=== PATIENT | male | born 1955 | race African-American/Black ===

== ENCOUNTER 2016-07-10 21:07 | Emergency (ER) | payer BC ==
[2016-07-10] MEDS ORDERED: IPRATROPIUM/ALBUTEROL SULFATE 3 ML AMPUL.NEB NEB ONE (22:06)
[2016-07-10] MEDS ORDERED: 0.9 % SODIUM CHLORIDE 500 ML IV ONE (22:06)
[2016-07-10] MEDS ORDERED: methylPREDNISolone SOD SUCC 125 MG/2 ML VIAL IVP ONE (22:06)
[2016-07-10 22:22] LABS: BASOPHILS % 0.3 (0.0-1.5); EOSINOPHILS % 1.6 % (0.0-6.8); LYMPHOCYTES # 2.9 # k/uL (0.6-4.0); MEAN CORPUSCULAR HEMOGLOBIN 30.5 pg (28.0-34.0); MONOCYTES # 0.4 # k/uL (0.0-0.9); MONOCYTES % 7.2 % (0.0-11.0)
[2016-07-10 22:30] LABS: eGFR (African) > 60; eGFR (Non-African) > 60
[2016-07-10] MEDS ORDERED: CloNIDine HCL 0.1 MG TABLET PO ONE (22:38)
[2016-07-10] MEDS ORDERED: BUDESONIDE 0.5MG/2ML AMPUL.NEB NEB ONE (22:43)
[2016-07-10] MEDS ORDERED: BUDESONIDE 0.5MG/2ML AMPUL.NEB NEB SCH (23:00)
--- NOTE | 2016-07-10 23:12 | Diagnostic Imaging Report ---
[facility] [address] [facility].[address] [address] ~ ~ ~ ~ Report Submission Date: Jul 10, 2016 10:39:18 PM EXPLOITATION ANALYST Patient ~ Study Name: CORRINE GUADARRAMA ~ Date: Jul 10, 2016 10:28:50 PM EXPLOITATION ANALYST MRN: [id number] ~ Modality Type: CR Gender: M ~ Description: CHEST : 57 ~ Institution: [facility] Physician: KEYA ALDRICH ~ ~ ~ ~ Chest - one-view Clinical history: ~Chest pain and shortness of breath. Findings: ~Examination of the chest in single portable AP view 07/10/2016 2228 hours with comparison to examination of 03/03/2016 demonstrates the lungs to be clear. ~Cardiovascular and mediastinal silhouettes are stable. ~The aorta is atherosclerotic. ~Monitor leads superimpose the chest. Impression: 1. ~Aortic atherosclerosis and left ventricular prominence. 2. ~No active disease. ~ Electronically signed on Jul 10, 2016 10:39:18 PM EXPLOITATION ANALYST by: Cruz COKER
[2016-07-10] MEDS ORDERED: hydrALAZINE HCL 20 MG/1 ML IVP ONE (23:33)
[2016-07-10] MEDS ORDERED: KETOROLAC TROMETHAMINE 30 MG/1ML VIAL IVP ONE (23:56)
[2016-07-11 01:32] VITALS: BP 162/81
[2016-07-11 06:04] LABS: APPEARANCE,URINE CLEAR (CLEAR); COLOR,URINE YELLOW (YELLOW); OCCULT BLOOD,URINE NEGATIVE (NEGATIVE)
--- NOTE | 2016-07-11 06:51 | ED Physician Documentation ---
Chest Pain - HISTORIAN Historian: patient - HPI Stated Complaint: chest pain Chief Complaint: Chest Pain Additional Information: left sided, pectoral Onset: minutes Timing: sudden onset Duration: none Last known Well Date: 07/10/16 Last Known Well Time: 20:00 Context: activity Severity: moderate Quality: aching Chest Pain Radiation: no radiation Chest Pain Signs/Symptoms: denies: nausea, vomiting Worsened By: deep breaths Relieved By: nothing Further Comments: no - ROS CONST: none MS/LYMPH: none GI/: none EYES/ENT: none SKIN/ENDO: none NEURO/PSYCH: none - PAST HX [place] risk factors: no pertinent history DVT/PE Risk Factors: none TAD/AAA risk factors: none Neuro deficit: none GI disease: none Lung disease: none Surgeries/Procedures: none Immunizations: referred to PCP Allergies/Adverse Reactions: Allergies Allergy/AdvReac Type Severity Reaction Status Date / Time No Known Allergies Allergy Verified 07/10/16 21:55 Home Medications: Ambulatory Orders Medication Instructions Recorded Aspirin [Adult Low Dose Aspirin EC] 81 mg PO D #100 tablet. 03/03/16 Nitroglycerin [Nitrostat] 0.3 mg SL DIRECTED PRN #25 03/03/16 tab.subl - SOCIAL HX Smoking History: non-smoker Alcohol Use: none Drug Use: none - FAMILY HX Family HX: none - VITAL SIGNS Vital Signs: Vital Signs Temp Pulse Resp BP Pulse Ox 98.4 F 76 16 162/81 99 07/11/16 01:28 07/11/16 01:28 07/11/16 01:28 07/11/16 01:28 07/11/16 01:28 - REVIEWED ASSESSMENTS Nursing Assessment Reviewed: Yes Vitals Reviewed: Yes Progress - Results/Orders Results/Orders: see orders - Progress Progress: pt. pain free at discharge Critical Care Note - Critical Care Note Total Time (mins): 0 ED Results Lab/Radiology - Lab Results Lab Results: Lab Results 07/10/16 07/10/16 07/10/16 22:11 22:07 22:07 WBC 5.60 K/ul K/ul (4.00-12.00) RBC 4.74 M/ul M/ul (3.90-5.20) Hgb 14.5 g/dL g/dL (12.0-18.0) Hct 44.3 % % (37.0-53.0) MCV 93.3 fl fl (80.0-100.0) MCH 30.5 pg pg (28.0-34.0) MCHC 32.7 g/dL g/dL (30.0-36.0) RDW 13.3 % % (11.3-14.3) Plt Count 98 K/mm3 L K/mm3 (130-400) Neut % (Auto) 35.9 % L % (39.0-79.0) Lymph % (Auto) 52.4 % H % (16.0-50.0) [place] % (Auto) 7.2 % % (0.0-11.0) Eos % (Auto) 1.6 % % (0.0-6.8) Baso % (Auto) 0.3 (0.0-1.5) Neut # 2.0 # k/uL # k/uL (1.4-7.7) Lymph # 2.9 # k/uL # k/uL (0.6-4.0) [place] # 0.4 # k/uL # k/uL (0.0-0.9) Eos # 0.1 # k/uL # k/uL (0.0-0.6) Baso # 0.0 # k/uL # k/uL (0.0-0.5) Reactive Lymphs % 2.5 % % (0.0-5.0) Reactive Lymphs # 0.1 # k/uL # k/uL (0.0-0.8) Sodium 140 mmol/L mmol/L (136-145) Potassium 4.2 mmol/L mmol/L (3.5-5.0) Chloride 115 mmol/L H mmol/L (98-110) Carbon Dioxide 29 mmol/L mmol/L (20-32) BUN 16 mg/dL mg/dL (10-26) Creatinine 0.8 mg/dL mg/dL (0.4-1.5) Estimated Creat Clear 107 Est GFR ( Amer) > 60 (60 - ) Est GFR (Non-Af Amer) > 60 (60 - ) Glucose 91 mg/dL mg/dL (70-99) Calcium 10.2 mg/dL mg/dL (8.5-10.5) Total Bilirubin 0.6 mg/dL mg/dL (0.2-1.2) AST 228 U/L H U/L (0-41) ALT 372 U/L H U/L (0-45) Alkaline Phosphatase 87 U/L U/L (46-116) Troponin I 0.00 ng/mL L ng/mL (0.03-0.06) Total Protein 8.2 g/dL g/dL (6.0-8.5) Albumin 4.3 g/dL g/dL (3.0-5.5) Urine Color Urine Appearance Urine pH Ur Specific [place] Urine Protein Urine Ketones Urine Occult Blood Urine Nitrite Urine Bilirubin Urine Urobilinogen Ur Leukocyte Esterase Urine Glucose 07/10/16 20:00 WBC RBC Hgb Hct MCV MCH MCHC RDW Plt Count Neut % (Auto) Lymph % (Auto) [place] % (Auto) Eos % (Auto) Baso % (Auto) Neut # Lymph # [place] # Eos # Baso # Reactive Lymphs % Reactive Lymphs # Sodium Potassium Chloride Carbon Dioxide BUN Creatinine Estimated Creat Clear Est GFR ( Amer) Est GFR (Non-Af Amer) Glucose Calcium Total Bilirubin AST ALT Alkaline Phosphatase Troponin I Total Protein Albumin Urine Color Yellow (YELLOW) Urine Appearance Clear (CLEAR) Urine pH 7.0 (5.0 - 8.0) Ur Specific [place] 1.020 (1.010-1.030) Urine Protein Negative mg/dL mg/dL (NEGATIVE) Urine Ketones Negative mg/dL mg/dL (NEGATIVE) Urine Occult Blood Negative (NEGATIVE) Urine Nitrite Negative (NEGATIVE) Urine Bilirubin Negative (NEGATIVE) Urine Urobilinogen 2.0 Eu H Eu (0.2-1.0) Ur Leukocyte Esterase Negative (NEGATIVE) Urine Glucose Negative mg/dL mg/dL (NEGATIVE) - Radiology Radiology Impressions: cxr neg - Orders Orders: ED Orders Category Date Time Status Continuous EKG monitoring Q1H Care 07/10/16 22:06 Active Continuous Pulse Oximetry Q1H Care 07/10/16 22:06 Active CHEST 1 VIEW [RAD] Routine Exams 07/10/16 Completed CBC/PLATELET/DIFF Routine Lab 07/10/16 22:07 Completed CMP Routine Lab 07/10/16 22:07 Completed TROPONIN I (cTnI) Routine Lab 07/10/16 22:11 Completed UA MACRO DIP ONLY Routine Lab 07/10/16 20:00 Completed 0.9 % Sodium Chloride [Normal Saline] 500 ml Med 07/10/16 22:06 Discontinued IV NOW Budesonide [Pulmicort] Med 07/10/16 22:43 Discontinued 0.5 mg NEB .STK-MED ONE Budesonide [Pulmicort] Med 07/10/16 23:00 Discontinued 0.5 mg NEB BID CloNIDine HCL [Catapress] Med 07/10/16 22:38 Discontinued 0.1 mg PO NOW ONE Ipratropium/Albuterol Sulfate [Duoneb] Med 07/10/16 22:06 Discontinued 3 ml NEB NOW ONE Ketorolac Tromethamine [Toradol] Med 07/10/16 23:56 Discontinued 30 mg IVP NOW ONE hydrALAZINE HCL [Apresoline] Med 07/10/16 23:33 Discontinued 10 mg IVP NOW ONE methylPREDNISolone SOD SUCC [Solu-MEDROL] Med 07/10/16 22:06 Discontinued 125 mg IVP NOW ONE EKG WITH COMPARISON Routine Ther 07/10/16 Ordered Chest Pain Physical Exam - EXAM General Appearance: alert, mild distress EENT: eye inspection normal, ENT inspection normal, pharynx normal, no signs of dehydration, HENRI, no nystagmus, TM's nml Neck: nml inspection, no carotid bruit Respiratory: no resp. distress, chest non-tender, nml breath sounds CVS: reg. rate & rhythm, no murmur, no gallop, no friction rub, pulses full, pulses equal Abdomen: soft, no organomegaly, normal bowel sounds, no abdominal bruit, no distension, non-tender Skin: warm/dry, normal color Extremities: non-tender, normal range of motion Neuro: oriented X3, CN's nml as tested, motor nml, sensation nml, mood/affect nml, cognition normal Discharge Clincal Impression: Hypertension Qualifiers: Hypertension type: essential hypertension Qualified Code(s): I10 - Essential ( primary) hypertension Referrals: Primary Doctor,No [Primary Care Provider] - 2 Days Home Medications: Ambulatory Orders Aspirin [Adult Low Dose Aspirin EC] 81 mg PO D #100 tablet. 03/03/16 Nitroglycerin [Nitrostat] 0.3 mg SL DIRECTED PRN #25 tab.subl 03/03/16 Comments: discharged home with scripts Condition: Stable Disposition: HOME, SELF-CARE Decision to Admit: NO Decision Time: 01:20
== END 2016-07-11 01:15 | disposition home or self-care (01) ==
LOC: ED 21:07
DX: I10 Essential (primary) hypertension (principal)
CPT/HCPCS: 71010; 80053; 81002; 84484; 85025; 93005; 94640; J0360; J1885; J2930; J7060; J7626; 96374; 96375; 99283; 99284

== ENCOUNTER 2016-07-21 10:57 | Outpatient (CLI) | payer BC | END 2016-07-21 11:00 | LOC: CARD 10:57 | PROVIDERS: ATTEND Internal Medicine Cardiovascular Disease | DX: I10 Essential (primary) hypertension (principal) | CPT/HCPCS: 36415; 80061; 99214 ==

== ENCOUNTER 2016-08-11 11:10 | Outpatient (CLI) | payer BC | END 2016-08-11 11:12 | LOC: CARD 11:10 | PROVIDERS: ATTEND Internal Medicine Cardiovascular Disease | DX: I42.9 Cardiomyopathy, unspecified (principal); I10 Essential (primary) hypertension; F17.210 Nicotine dependence, cigarettes, uncomplicated; R42 Dizziness and giddiness | CPT/HCPCS: G0463 ==

== ENCOUNTER 2016-09-15 10:48 | Outpatient (CLI) | payer BC | END 2016-09-15 10:50 | LOC: CARD 10:48 | PROVIDERS: ATTEND Internal Medicine Cardiovascular Disease | DX: I10 Essential (primary) hypertension (principal) | CPT/HCPCS: G0463 ==

== ENCOUNTER 2016-10-20 11:24 | Outpatient (CLI) | payer BC | END 2016-10-20 11:25 | LOC: CARD 11:24 | PROVIDERS: ATTEND Internal Medicine Cardiovascular Disease | DX: I42.9 Cardiomyopathy, unspecified (principal); I10 Essential (primary) hypertension; F17.200 Nicotine dependence, unspecified, uncomplicated | CPT/HCPCS: 99213; 99214 ==

== ENCOUNTER 2016-12-01 11:06 | Outpatient (CLI) | payer BC | END 2016-12-01 11:11 | disposition home or self-care (01) | LOC: CARD 11:06 | PROVIDERS: ATTEND Internal Medicine Cardiovascular Disease | DX: I10 Essential (primary) hypertension (principal) | CPT/HCPCS: 99213 ==

== ENCOUNTER 2017-04-20 09:37 | Emergency (ER) | payer BC, OTHER ==
--- NOTE | 2017-04-20 10:05 | ED Physician Documentation ---
Shoulder Injury/Pain - HISTORIAN Historian: patient - HPI Stated Complaint: L shoulder pain Chief Complaint: Shoulder Injury/ Pain Front/Back of Body, Lg ([place]): 1 - pain to touch and decreased rom increased sharp pain with active elevation Onset: days ago (4) Where: home Severity: mild Pain: persistent Context: other (no injury noted however he has been waking with what he feels are spider bites so he is concerned ) Associated Symptoms: unable to move shoulder, other (no rash although the area feels like burning pain per his report ). denies: numbness - ROS CONST: no problems CVS/RESP: none. denies: chest pain, shortness of breath GI/: denies: nausea, vomiting MS/SKIN/LYMPH: none NEURO: none - PAST HX Past History: other (HTN he states is well controlled he has not taken his meds today ) Allergies/Adverse Reactions: Allergies Allergy/AdvReac Type Severity Reaction Status Date / Time lisinopril Allergy Verified 04/20/17 10:19 Home Medications: Ambulatory Orders Medication Instructions Recorded Aspirin [Adult Low Dose Aspirin EC] 81 mg PO D #100 tablet. 03/03/16 Nitroglycerin [Nitrostat] 0.3 mg SL DIRECTED PRN #25 03/03/16 tab.subl - SOCIAL HX Smoking History: cigarettes Alcohol Use: none Drug Use: none - FAMILY HX Family History: none - VITAL SIGNS Vital Signs: Vital Signs Temp Pulse Resp BP Pulse Ox 97.4 F L 105 H 19 151/101 98 04/20/17 09:48 04/20/17 09:48 04/20/17 09:48 04/20/17 09:48 04/20/17 09:48 - REVIEWED ASSESSMENT Nursing Assessment Reviewed: Yes Vitals Reviewed: Yes ED Results Lab/Radiology - Lab Results Lab Results: Lab Results 04/20/17 04/20/17 10:05 10:05 WBC 8.30 K/ul K/ul (4.00-12.00) RBC 5.32 M/ul H M/ul (3.90-5.20) Hgb 15.6 g/dL g/dL (12.0-18.0) Hct 47.8 % % (37.0-53.0) MCV 89.8 fl fl (80.0-100.0) MCH 29.4 pg pg (28.0-34.0) MCHC 32.7 g/dL g/dL (30.0-36.0) RDW 13.2 % % (11.3-14.3) Plt Count 138 K/mm3 K/mm3 (130-400) Neut % (Auto) 46.5 % % (39.0-79.0) Lymph % (Auto) 41.5 % % (16.0-50.0) [place] % (Auto) 7.3 % % (0.0-11.0) Eos % (Auto) 1.4 % % (0.0-6.8) Baso % (Auto) 0.7 (0.0-1.5) Neut # (Auto) 3.9 # k/uL # k/uL (1.4-7.7) Lymph # (Auto) 3.4 # k/uL # k/uL (0.6-4.0) [place] # (Auto) 0.6 # k/uL # k/uL (0.0-0.9) Eos # (Auto) 0.1 # k/uL # k/uL (0.0-0.6) Baso # (Auto) 0.1 # k/uL # k/uL (0.0-0.5) Reactive Lymphs % 2.5 % % (0.0-5.0) Reactive Lymphs # 0.2 # k/uL # k/uL (0.0-0.8) Sodium 137 mmol/L mmol/L (137-145) Potassium 4.1 mmol/L mmol/L (3.5-5.1) Chloride 100 mmol/L mmol/L (98-107) Carbon Dioxide 27 mmol/L mmol/L (22-30) BUN 13 mg/dL mg/dL (9-20) Creatinine 0.80 mg/dL mg/dL (0.66-1.25) Estimated Creat Clear 105 Est GFR ( Amer) > 60 (60 - ) Est GFR (Non-Af Amer) > 60 (60 - ) Glucose 143 mg/dL H mg/dL (74-106) Calcium 9.1 mg/dL mg/dL (8.4-10.2) Total Bilirubin 0.8 mg/dL mg/dL (0.2-1.3) AST 160 U/L H U/L (15-46) ALT 290 U/L H U/L (13-69) Alkaline Phosphatase 76 U/L U/L (38-126) Total Protein 8.5 g/dL H g/dL (6.3-8.2) Albumin 4.1 g/dL g/dL (3.5-5.0) - Radiology Radiology Impressions: Examination: Plain film shoulder History: Discomfort Comparison exams: None provided Findings: 2 views of the shoulder demonstrate normal cortical margins. No evidence for fracture or dislocation. Acromioclavicular joint degenerative changes. No soft tissue abnormality Impression: Acromioclavicular joint degenerative changes. No acute osseous process. Electronically signed on Apr 20, 2017 10:17:17 AM LOCK AND DAM REPAIRER by: Paulie Price - Orders Orders: ED Orders Category Date Time Status SHOULDER 2 VIEWS OR MORE [RAD] Stat Exams 04/20/17 09:56 Taken CBC/PLATELET/DIFF Routine Lab 04/20/17 10:05 Completed CMP [CMP] Routine Lab 04/20/17 10:05 Completed Ketorolac Tromethamine [Toradol] Med 04/20/17 10:18 Discontinued 60 mg IM NOW ONE methylPREDNISolone ACETATE [Depo-Medrol] Med 04/20/17 10:19 Discontinued 40 mg IM NOW ONE Shoulder Injury Physical Exam - Physical Exam General Appearance: no acute distress, alert Shoulder: no acute distress, bony tenderness, ecchymosis, limited ROM, limited adduction, limited abduction, limited extension. No: swelling Upper Extremity: soft-tissue tenderness. No: no injury below shoulder Neuro: sensation nml Vascular: no vascular compromise Skin: warm/dry Head/ENT: nml inspection Respiratory: chest non-tender, breath sounds nml, no resp. distress, heart sounds nml CVS: reg rate & rhythm, heart sounds normal, equal pulses, no murmur Abdomen: soft, no organomegaly, normal bowel sounds Discharge Clincal Impression: Left shoulder pain Qualifiers: Chronicity: acute Qualified Code(s): M25.512 - Pain in left shoulder Referrals: Primary Doctor,No [Primary Care Provider] - 2 Days Condition: Stable Disposition: 01 HOME, SELF-CARE Decision to Admit: NO Date of Decison to Admit: 04/20/17 Decision Time: 10:36
[2017-04-20 10:12] LABS: BASOPHILS % 0.7 (0.0-1.5); EOSINOPHILS % 1.4 % (0.0-6.8); MEAN CORPUSCULAR HEMOGLOBIN 29.4 pg (28.0-34.0); MEAN CORPUSCULAR VOLUME 89.8 fl (80.0-100.0); MONOCYTES % 7.3 % (0.0-11.0); NEUTROPHILS # 3.9 # k/uL (1.4-7.7)
[2017-04-20 10:22] LABS: eGFR (African) > 60; eGFR (Non-African) > 60
[2017-04-20] MEDS: KETOROLAC TROMETHAMINE 60 MG/2 ML VIAL IM ONE (10:28)
[2017-04-20] MEDS: methylPREDNISolone ACETATE 40 MG/ML VIAL IM ONE (10:28)
--- NOTE | 2017-04-20 10:40 | Diagnostic Imaging Report ---
RITA BUCK [facility] [address] [facility].[address] [address] Report Submission Date: Apr 20, 2017 10:17:17 AM MAJOR CASE DETECTIVE Patient Study Name: CORRINE GUADARRAMA Date: Apr 20, 2017 10:05:53 AM MAJOR CASE DETECTIVE MRN: [id number] Modality Type: CR Gender: M Description: SHOULDER : 57 Institution: [facility] Physician: RITA BUCK Examination: Plain film shoulder History: Discomfort Comparison exams: None provided Findings: 2 views of the shoulder demonstrate normal cortical margins. No evidence for fracture or dislocation. Acromioclavicular joint degenerative changes. No soft tissue abnormality Impression: Acromioclavicular joint degenerative changes. No acute osseous process. Electronically signed on Apr 20, 2017 10:17:17 AM MAJOR CASE DETECTIVE by: Paulie COKER
[2017-04-20 10:41] VITALS: BP 145/101
== END 2017-04-20 10:39 | disposition home or self-care (01) ==
LOC: ED 09:37
DX: M25.512 Pain in left shoulder (principal)
CPT/HCPCS: 73030; 80053; 85025; J1030; J1885; 96372; 99283

== ENCOUNTER 2017-11-23 13:40 | Outpatient (CLI) | payer OTHER | END 2017-11-23 13:42 | LOC: CARD 13:40 | PROVIDERS: ATTEND Internal Medicine Cardiovascular Disease | DX: I42.9 Cardiomyopathy, unspecified (principal); I10 Essential (primary) hypertension; Z72.0 Tobacco use | CPT/HCPCS: 99213 ==